=== PATIENT | female | born 1985 | race Caucasian/White ===

== ENCOUNTER 2019-02-04 01:46 | Emergency (ER) | payer OTHER, SELFPAY ==
[2019-02-04 01:49] VITALS: BP 106/62; PULSE 99; RESP 16; TEMP 36.9; O2SAT 95; BMI 34.4
[2019-02-04 02:10] VITALS: TEMP 37.1
--- NOTE | 2019-02-04 02:15 | ED.DCSUM_ITS ---
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 She had a needlestick to her right index finger. This was a hollow needle and the source patient's blood was drawn. Patient is up-to-date with her vaccines inc luding hepatitis. She has a remote history of uterine and ovarian cancer. She has no active medical issues. Physical Examination: Needlestick to right index finger. Test Results: Exposure tests are pending. Emergency Department Course and Treatment: Patient elected to take postexposure prophylaxis. She received her first dose here and a prescription for the rest. She will follow-up with [facility] care. Treatment Plan: As above Disposition: Discharge Impression: Needlestick exposure This note was generated with [employer] dictation software. It may contain incorrect words, spelling, and punctuation that were not noted in review of the chart prior to signing ED Disposition - Plan for ED Patient: Referrals: Uzma Carbajal NP-C [Primary Care Provider] -
--- NOTE | 2019-02-04 02:17 | ED.DEP ---
ED Disposition - Plan for ED Patient: Instructions: BODY FLUID EXPOSURE, Health Care Worker Prescriptions: Raltegravir Potassium [Isentress] 400 mg PO BID #56 tab Prescription Printed Emtricitabine/Tenofovir (Tdf) [Truvada 200 mg-300 mg Tablet] 1 tab PO DAILY #28 tab Prescription Printed Referrals: [facility] [GROUP OF PHYSICIANS] -
[2019-02-04] MEDS: RALTEGRAVIR POTASSIUM 400 MG TABLET PO (02:26)
[2019-02-04] MEDS: EMTRICITABINE/TENOFOVIR 1 TABLET TABLET PO (02:26)
[2019-02-04 02:37] VITALS: PULSE 76; RESP 18; O2SAT 98
--- NOTE | 2019-02-04 02:37 | ED.RN ---
THIS NURSE REVIEWED D/C INSTRUCTIONS WITH PT. PT VERBALIZED UNDERSTANDING OF INSTRUCTIONS. PT DENIES FURTHER NEEDS OR QUESTIONS AT THIS TIME.
[2019-02-04 04:14] LABS: HIV - WCH Non-Reactive (Nonreactive); Hepatitis B Surface Antibody Reactive; Hepatitis B Surface Antigen Non-Reactive (Nonreactive); Hepatitis C Antibody Non-Reactive (Nonreactive)
== END 2019-02-04 02:38 | disposition home or self-care (01) ==
PROVIDERS: Emergency Provider Emergency Medicine; Family Provider Nurse Practitioner Adult Health; PCP Nurse Practitioner Adult Health
DX: S61.230A Puncture wound without foreign body of right index finger without damage to nail, initial encounter (principal); W46.0XXA Contact with hypodermic needle, initial encounter; Z85.42 Personal history of malignant neoplasm of other parts of uterus
CPT/HCPCS: 86703; 86706; 86803; 87340; 99284

== ENCOUNTER 2019-06-23 23:39 | Emergency (ER) | payer OTHER, MEDICAID, SELFPAY ==
[2019-06-23 23:40] VITALS: BP 133/82; PULSE 86; RESP 16; TEMP 37.1; O2SAT 97; BMI 32.8
--- NOTE | 2019-06-23 23:50 | CT_ITS ---
STUDY: CT BRAIN WITHOUT CONTRAST REASON FOR EXAM: Female, 34 years old patient hit in head with ladder with subsequent neck pain, headache, nausea and loss of consciousness. RADIATION DOSAGE (If Supplied By Facility): CTDIvol = ( 44.99 ) mGy, DLP = ( 779.24 ) mGycm TECHNIQUE: Transaxial CT imaging of the brain was performed without administration of intravenous contrast material. Multiplanar reformations are submitted for interpretation. Individualized dose optimization techniques were used for this CT. COMPARISON: No relevant priors. FINDINGS: Normal soft tissue structures. Normal calvarium. Normal size ventricles and extra-axial spaces for the patient''s age. Normal white matter tracts of the cerebral hemispheres. Normal basal ganglia and thalami. Normal brainstem. Normal cerebellum. There is no intracranial hemorrhage. There are no findings of an acute ischemic infarction. Normal visualized paranasal sinuses. CT/Brain/Head without Contrast IMPRESSION: No CT evidence of acute intracranial hemorrhage. Electronically Signed: Leticia Ribera MD at 1:16 EDT , Service support ,
--- NOTE | 2019-06-23 23:50 | CT_ITS ---
STUDY: CT CERVICAL SPINE WITHOUT CONTRAST REASON FOR EXAM: Female, 34 years old patient hit in head with ladder with subsequent neck pain, headache, nausea and loss of consciousness. RADIATION DOSAGE (If Supplied By Facility): CTDIvol = ( 18.13 ) mGy, DLP = ( 424.62 ) mGycm TECHNIQUE: High resolution transaxial imaging was performed without contrast material. Sagittal and coronal images were reconstructed. Individualized dose optimization techniques were used for this CT. COMPARISON: None FINDINGS: Normal craniovertebral junction. Normal anterior atlantoaxial articulation. Normal odontoid process. There is straightening of the normal cervical lordosis. Normal vertebral bodies and posterior osseous elements. C2-3: Normal endplates. Normal disc height and morphology. Normal central canal and intervertebral neuroforamina. C3-4: Normal endplates. Normal disc height and morphology. Normal central canal and intervertebral neuroforamina. C4-5: Normal endplates. Normal disc height and morphology. Normal central canal and intervertebral neuroforamina. C5-6: Normal endplates. Normal disc height and morphology. Normal central canal and intervertebral neuroforamina. C6-7: Normal endplates. Normal disc height and morphology. Normal central canal and intervertebral neuroforamina. C7-T1: Normal endplates. Normal disc height and morphology. Normal central canal and intervertebral neuroforamina. The thyroid has heterogeneous attenuation with scattered nodules. The largest right-sided nodule measures approximately 9.3 mm. There is also left-sided thyroid nodule measuring up to 1.[address]/Spine Cervical without Contras IMPRESSION: No CT evidence of acute compression or displaced fracture. Electronically Signed: Leticia Ribera MD at 1:23 EDT , Service support ,
[2019-06-24] MEDS: HYDROcodone Bitartrate/Apap 5/325 Tablet PO (00:38)
--- NOTE | 2019-06-24 01:27 | ED.VISSUMM ---
- ER Visit Summary Date of Service: 06/24/19 Chief Complaint: Head and neck injury History of Present Illness: The patient is a 34 F who sustained a head and neck injury. She was working with a long ladder when the ladder fell on her head on the right side. There was no LOC. She is complaining of some head and neck pain. The pain is worse with movement. She states that this happened about 2 hours prior to arrival. She took nothing for this pain. Denies any visual changes. No paresthesias. Denies any other symptoms. No blood thinning medications taken at home. Physical Examination: Vital signs are reviewed. HEENT exam reveals no evidence of trauma. Her cervical spine is diffusely tender. Cervical collar is in place. Heart is regular rate and rhythm. Lungs clear to auscultation bilaterally. Abdomen soft nontender. Extremities reveal no edema. Her back is nontender other than the cervical spine. GCS 15. Normal strength and sensation bilaterally. Test Results: CAT scan of the head and cervical spine revealed no acute findings Emergency Department Course and Treatment: The patient's CAT scans are unremarkable. She was given [place] for pain control. She will continue NSAIDs for pain control at home. She will use ice as well. Worker's Compensation forms were filled out. Treatment Plan: [] Disposition: Discharge Impression: Concussion without loss of consciousness Cervical strain This note was generated with [employer] dictation software. It may contain incorrect words, spelling, and punctuation that were not noted in review of the chart prior to signing ED Disposition - Plan for ED Patient: Disposition: Home or Assisted Living Instructions: CONCUSSION, No Wake Up Referrals: Uzma Carbajal NP-C [Primary Care Provider] -
[2019-06-24 01:45] VITALS: BP 109/74; PULSE 72; RESP 16; O2SAT 97
--- NOTE | 2019-06-24 01:46 | ED.RN ---
THIS NURSE REVIEWED D/C INSTRUCTIONS WITH PT. PT VERBALIZED UNDERSTANDING OF INSTRUCTIONS. PT DENIES FURTHER NEEDS OR QUESTIONS AT THIS TIME. PT AMBULATES FROM ROOM ON OWN WITHOUT ASSISTANCE FROM STAFF
== END 2019-06-24 01:46 | disposition home or self-care (01) ==
PROVIDERS: Emergency Provider Emergency Medicine; PCP Nurse Practitioner Adult Health
DX: S06.0X0A Concussion without loss of consciousness, initial encounter (principal); S16.1XXA Strain of muscle, fascia and tendon at neck level, initial encounter; W20.8XXA Other cause of strike by thrown, projected or falling object, initial encounter; Y93.9 Activity, unspecified; Y92.89 Other specified places as the place of occurrence of the external cause; Y99.9 Unspecified external cause status
CPT/HCPCS: 70450; 72125; 99284

== ENCOUNTER 2020-04-30 13:29 | Emergency (ER) | payer OTHER, MEDICAID, SELFPAY ==
[2020-04-30 13:31] VITALS: BP 120/62; PULSE 86; RESP 17; TEMP 36; O2SAT 100; BMI 35.4
--- NOTE | 2020-04-30 13:44 | RAD_ITS ---
STUDY: X-RAY - UNILATERAL RIBS ( LEFT ) WITH CHEST REASON FOR EXAM: Female, 35 years old. FELL ONTO LEFT SIDE 4 DAYS AGO PAIN TO LEFT ARM CHEST AND RIBS -- ANTERIOR PAIN TECHNIQUE - RIBS: 4 view(s) of the ribs. TECHNIQUE - CHEST: PA COMPARISON: None. FINDINGS - RIBS: Normal visualized ribs without a demonstrated fracture. FINDINGS - CHEST: The lungs are clear and expanded. There is no demonstrated pleural abnormality. Normal size heart. Normal mediastinum and lesley. Normal visualized pulmonary arteries. Normal visualized aortic arch and descending thoracic aorta. There is demineralization of the osseous structures. There is no demonstrated abnormality of the visualized soft tissue structures of the upper abdomen. RAD/Ribs Uni Min 3V w/PA Chest IMPRESSION: RIBS: No demonstrated fracture. CHEST: Nonacute x-ray examination of the chest. Electronically Signed: Charles Francisco MD ([place]) at 14:13 EST , Service support ,
--- NOTE | 2020-04-30 13:46 | ED.VISSUMM ---
- ER Visit Summary Date of Service: 04/30/20 Chief Complaint: Fall History of Present Illness: The patient is a 35 F presents after a fall that occurred at work 4 days ago. Patient states she tripped and fell. Patient states she hit the left side of her chest on a counter. Patient states she has pain in her chest and left shoulder. Patient describes it as sharp and burning. Patient states it is worse with movement and deep breathing. Patient denies any head injury or loss of consciousness. Patient denies any paresthesias or weakness. Patient denies any other injuries. Physical Examination: Vital signs are stable. Patient is afebrile. Patient is in no acute distress. Oral mucosa is pink and moist. Neck is supple. Trachea is midline. There is no JVD. Heart was regular rate and rhythm. Lungs are clear but diminished bilaterally. Respiratory effort was limited secondary to pain. Abdomen is soft. Bowel sounds are normal. There is no tenderness. Cranial nerves II through XII are intact. There are no focal motor or sensory deficits. Test Results: X-rays of the left ribs were obtained. There are 5 views. On my interpretation, there is no acute fracture or pneumothorax. Radiologist also interpreted the x-rays and agrees. Emergency Department Course and Treatment: Patient was advised of her findings. Patient was instructed to take Tylenol or ibuprofen as needed for pain. Patient was instructed use ice to the area. Patient was instructed to follow-up with her primary care physician or [facility] in 5 to 7 days. Patient understood and was agreeable with the plan. All questions were answered. Disposition: Discharge home Impression: 1. Chest wall contusion This note was generated with [employer] dictation software. It may contain incorrect words, spelling, and punctuation that were not noted in review of the chart prior to signing ED Disposition - Plan for ED Patient: Disposition: Home or Assisted Living Diagnosis: Chest wall contusion Instructions: ED Chest Wall Contusion Referrals: Uzma Carbajal NP, MATTHEW-C [Primary Care Provider] - 5-7 Days [facility] [GROUP OF PHYSICIANS] - 5-7 Days
== END 2020-04-30 15:45 | disposition home or self-care (01) ==
PROVIDERS: Emergency Provider Emergency Medicine; PCP Nurse Practitioner Adult Health
DX: S20.219A Contusion of unspecified front wall of thorax, initial encounter (principal); W01.198A Fall on same level from slipping, tripping and stumbling with subsequent striking against other object, initial encounter; Y99.0 Civilian activity done for income or pay
CPT/HCPCS: 71101; 99282

== ENCOUNTER → 2023-02-12 | Outpatient (CLI) | payer OTHER, SELFPAY ==
[2023-02-12 11:23] LABS: Alanine Aminotransfer ALT/SGPT 27 U/L (13-56)
[2023-02-12 13:21] LABS: HIV - WCH Non-Reactive (Nonreactive); Hepatitis C Antibody Non-Reactive (Nonreactive)
== END | disposition home or self-care (01) ==
PROVIDERS: PCP Nurse Practitioner Adult Health; Referring Provider Physician Assistant; Visit Provider Physician Assistant
DX: Z77.21 Contact with and (suspected) exposure to potentially hazardous body fluids (principal); W46.1XXA Contact with contaminated hypodermic needle, initial encounter
CPT/HCPCS: 36415; 84460; 86703; 86803